=== PATIENT | female | born 1950 | race Caucasian/White ===

== ENCOUNTER 2022-07-20 06:31 | Day surgery (SDC) | payer MEDICARE, SELFPAY ==
[2022-07-20 06:52] VITALS: BP 185/97; PULSE 94; RESP 18; TEMP 36.2; O2SAT 92
[2022-07-20 06:53] VITALS: BMI 32.2
[2022-07-20] MEDS: CELECOXIB 200 MG CAPSULE PO (06:55)
[2022-07-20] MEDS: LACTATED RINGERS 1000 ML 1,000 ML 35 ML IV (07:00)
[2022-07-20 07:09] VITALS: BP 164/88; PULSE 94; RESP 18; TEMP 36.2; O2SAT 92
[2022-07-20] MEDS: SODIUM CHLORIDE 0.9 % (FLUSH) 10 ML SYRINGE IVF (07:10)
[2022-07-20 07:40] VITALS: BP 177/91; PULSE 88; RESP 16; O2SAT 96
[2022-07-20] MEDS: CEFAZOLIN 2 GM INJ IVP (07:44)
[2022-07-20 07:45] VITALS: BP 171/84; PULSE 90; RESP 16; O2SAT 97
[2022-07-20 07:49] VITALS: BP 169/86; PULSE 89; RESP 16; O2SAT 96
[2022-07-20 08:00] VITALS: BP 174/95; PULSE 92; RESP 18; TEMP 36.4; O2SAT 93
--- NOTE | 2022-07-20 08:23 | SUR.PHASEII ---
[facility] CALLED AT DISCHARGE.
--- NOTE | 2022-07-20 08:47 | P.ORPRC_ITS ---
Procedure Note Date of procedure: 07/20/22 Procedure: Preop diagnosis: Left thumb stenosing tenosynovitis Postop diagnosis: Left thumb stenosing tenosynovitis Procedure: Left thumb A1 andres release Anesthesia: Local Surgeon: Ulises Pete MD hospital nursing assistant: Crystal Dhillon PA-C EBL: 0 mL Complications: None Specimens: None Drains: None Preoperative antibiotics: None Indications: The patient has a history of left thumb painful catching and locking. Despite appropriate non operative management including flexor tendon sheath corticosteroid injections they continue to have symptoms. Operative intervention was recommended. The risks, benefits alternatives and expected outcomes were discussed in detail. These included but were not limited to: Infection, bleeding, injury to blood vessel or nerve, venous thromboembolism. All questions were answered to their satisfaction. The patient was placed supine on the operating room table. Local anesthesia was established with 0.5% Marcaine without epinephrine and 2% lidocaine without epinephrine. The hand was prepped and draped in usual sterile fashion. The limb was elevated the forearm pneumatic tourniquet was inflated to 250 mm of mercury. A transverse incision was made in the MP flexion crease of the thumb. Subcutaneous dissection was taken through the palmar fascia to the flexor tendons with the tenotomy scissors. The A1 andres was released with the 15 blade and the tenotomy scissors. The edges of the A1 andres were sharply resected. Active flexion and extension of the thumb shows no catching or locking, no bowstringing of the flexor tendons. The wound was closed with interrupted nylon sutures. A dry dressing was applied the tourniquet was released. Sponge and needle counts were correct x 2. The patient tolerated the procedure well, there were no apparent complications. They were sent to same day surgery in satisfactory condition. Plan: Use of the hand as tolerates. Discontinue the intraoperative dressing on postoperative day 3 and may get the wound wet as tolerates. Follow up in the office in 2 weeks for a wound check and suture removal.
== END 2022-07-20 09:00 | disposition home or self-care (01) ==
PROVIDERS: PCP Physician Assistant; Visit Provider Orthopaedic Surgery
PROC: (CPT 26055; principal; 2022-07-20 07:30)
DX: M65.842 Other synovitis and tenosynovitis, left hand (principal)
CPT/HCPCS: 26055; A9270; J0690; J7120